=== PATIENT | male | born 1990 ===

== ENCOUNTER 2023-09-06 14:35 | Emergency (ER) | payer OTHER ==
[~2023-09-06] VITALS: Ht 180.3 cm; Wt 81.0 kg
[2023-09-06 15:02] VITALS: BP 136/88; PULSE 88; RESP 16; TEMP 99.1
[2023-09-06] MEDS ORDERED: BACITRACIN 0.9 GM PACKET OINTMENT TP ONE (15:02)
[2023-09-06] MEDS ORDERED: BACITRACIN 28 GM OINTMENT TP ONE (15:15)
[2023-09-08] MEDS ORDERED: DOXY-354 PO (13:16)
== END 2023-09-06 15:39 | disposition home or self-care (01) ==
LOC: EMS 14:36
DX: L97.929 Non-pressure chronic ulcer of unspecified part of left lower leg with unspecified severity (principal); L97.919 Non-pressure chronic ulcer of unspecified part of right lower leg with unspecified severity
CPT/HCPCS: 99282; Z7502; Z7610